=== PATIENT | female | born 1985 | race African-American/Black ===

== ENCOUNTER 2018-04-06 09:14 | Emergency (ER) | payer OTHER ==
[~2018-04-06] VITALS: Ht 170.2 cm; Wt 95.3 kg
[2018-04-06 09:32] VITALS: BP 149/108
== END 2018-04-06 10:31 | disposition home or self-care (01) ==
LOC: ER 09:14
DX: L72.0 Epidermal cyst (principal)

== ENCOUNTER 2018-09-05 01:46 | Emergency (ER) | payer OTHER ==
[~2018-09-05] VITALS: Ht 167.6 cm; Wt 81.6 kg
[2018-09-05 02:09] VITALS: BP 116/89
[2018-09-05 02:33] LABS: Basophils # (auto) 0 uL; Eosinophils # (auto) 0.1 uL; White Blood Cell 11.2 10^3/uL (4.4-10.8)
[2018-09-05 02:34] LABS: Basophils % (auto) 0.2 % (0.0-2.0); Eosinophils % (auto) 0.4 % (0.0-7.0); Hemoglobin 13.1 g/dL (12.2-16.2); Lymphocytes # (auto) 1.9 uL; Lymphocytes % (auto) 16.8 % (10.0-50.0); Mean Corpuscular Hemoglobin 26.7 pg (28.0-32.0); Mean Corpuscular Hgb Conc. 32.8 g/dL (32.0-36.0); Mean Corpuscular Volume 81.2 fL (80.0-100.0); Monocytes # (auto) 0.8 uL; Monocytes % (auto) 6.8 % (0.0-12.0); Neutrophils # (auto) 8.5 uL; Neutrophils % (auto) 75.8 % (37.0-80.0); Nucleated Red Blood Cells % 0.1 %; Platelet Count (auto) 261 10^3/uL (140-450); Red Blood Cells 4.93 10^6/uL (4.0-5.20); Red Cell Distribution Width 13.1 % (11.8-14.3)
[2018-09-05 02:54] LABS: Albumin 3.6 g/dL (3.4-5.0); BUN/Creatinine Ratio 11.9; Potassium 3.9 mmol/L (3.5-5.1)
[2018-09-05 02:56] LABS: Bilirubin, Total 0.3 mg/dL (0.2-1.0); Total Protein 7.5 g/dL (6.4-8.2)
[2018-09-05 03:17] LABS: Urine Bacteria FEW /hpf (None Seen); Urine Blood Negative /uL (Negative); Urine Specific Gravity 1.022 (1.001-1.035); Urine WBC 5 /hpf (0 - 5)
== END 2018-09-05 08:12 | disposition left against medical advice (07) ==
LOC: ER 01:50
DX: R11.2 Nausea with vomiting, unspecified (principal); Z53.21 Procedure and treatment not carried out due to patient leaving prior to being seen by health care provider
CPT/HCPCS: 36415; 80053; 81001; 81025; 82150; 83690; 83735; 85025